=== PATIENT | female | born 1975 | race African-American/Black ===

== ENCOUNTER 2017-05-15 09:11 | Emergency (ER) | payer MEDICAID ==
[~2017-05-15] VITALS: Ht 170.2 cm; Wt 73.0 kg
[~2017-05-15 09:11] MED LIST: OTC MED
[2017-05-15] MEDS ORDERED: ACETAMINOPHEN 500MG TABLET PO ONE (11:30)
[2017-05-15 11:39] VITALS: BP 115/67
== END 2017-05-15 11:40 | disposition home or self-care (01) ==
LOC: ER 09:48
DX: H92.02 Otalgia, left ear (principal); J06.9 Acute upper respiratory infection, unspecified; F17.200 Nicotine dependence, unspecified, uncomplicated; Z88.5 Allergy status to narcotic agent
CPT/HCPCS: 99282

== ENCOUNTER 2018-03-31 11:38 | Emergency (ER) | payer MEDICAID ==
[2018-03-31 12:42] VITALS: BP 116/49
[2018-03-31] MEDS ORDERED: IPRATROPIUM/ALBUTEROL 0.5-3(2.5)MG/3ML NEB HHN ONE (13:15)
== END 2018-03-31 14:00 | disposition home or self-care (01) ==
LOC: ER 12:36
DX: J06.9 Acute upper respiratory infection, unspecified (principal); F17.200 Nicotine dependence, unspecified, uncomplicated; Z88.5 Allergy status to narcotic agent
CPT/HCPCS: 94640; 99283; J7620